=== PATIENT | female | born 1950 | race Caucasian/White ===

== ENCOUNTER 2016-11-18 06:01 | Inpatient (IN) | payer MEDICARE ==
[~2016-11-18] VITALS: Ht 149.9 cm; Wt 74.6 kg
[2016-11-18] MEDS ORDERED: MORPHINE SULFATE 4 MG/ML, 1ML ONE (06:11)
[2016-11-18] MEDS ORDERED: ONDANSETRON 2MG/ML, 2ML ONE (06:11)
[2016-11-18] MEDS ORDERED: LISI40TA PO (06:24)
[2016-11-18] MEDS ORDERED: HYDR25TA6 PO (06:25)
[2016-11-18] MEDS ORDERED: DICL75TA2 PO (06:26)
[2016-11-18] MEDS ORDERED: ASPI-515 PO (06:27)
[2016-11-18] MEDS ORDERED: SODIUM CHLORIDE FLUSH 10ML SYR IVF ONE (06:30)
[2016-11-18] MEDS ORDERED: MORPHINE SULFATE 4 MG/ML, 1ML IVPush PRN ×2 (06:30→09:00)
[2016-11-18] MEDS ORDERED: ONDANSETRON 2MG/ML, 2ML IVPush ONE (06:30)
[2016-11-18 06:52] LABS: ASPARTATE AMINO TRANSFERASE 16 U/L (15-37); BLOOD UREA NITROGEN 29 mg/dL (7-18)
[2016-11-18 06:57] LABS: IS PT STATUS REG ER OR PRE ER? YES
[2016-11-18] MEDS ORDERED: MAALOX/HYOSCYAMINE/LIDOCAINE 45 ML BOTTLE ONE (07:09)
[2016-11-18] MEDS ORDERED: MAALOX/HYOSCYAMINE/LIDOCAINE 45 ML BOTTLE PO ONE (07:30)
[2016-11-18] MEDS ORDERED: ONDANSETRON 2MG/ML, 2ML IVP PRN (08:30)
[2016-11-18] MEDS ORDERED: BISACODYL 10 MG SUPP PR PRN (08:30)
[2016-11-18] MEDS ORDERED: NITROGLYCERIN 0.4 MG/SPRAY SL PRN (08:30)
[2016-11-18] MEDS ORDERED: BISACODYL 5 MG EC TABLET PO PRN (08:30)
[2016-11-18] MEDS ORDERED: ACETAMINOPHEN 325 MG TABLET PO PRN (08:30)
[2016-11-18 09:00] VITALS: BP 112/72
[2016-11-18] MEDS ORDERED: POTASSIUM CHLORIDE 20 MEQ TAB.ER.PRT PO ONE (09:00)
[2016-11-18] MEDS: HYDROCHLOROTHIAZIDE 25 MG TABLET PO SCH (09:00)
[2016-11-18] MEDS: LISINOPRIL 20 MG TABLET PO SCH (09:00)
[2016-11-18] MEDS: ENOXAPARIN 40 MG/0.4 ML SQ SCH (10:39)
[2016-11-18] MEDS: SODIUM CHLORIDE FLUSH 10ML SYR IVF SCH ×2 (10:41→20:32)
[2016-11-18 12:32] LABS: IS PT STATUS REG ER OR PRE ER? NO
[2016-11-18 14:00] VITALS: BP 102/65
[2016-11-18 18:23] LABS: IS PT STATUS REG ER OR PRE ER? NO
[2016-11-18 20:28] VITALS: BP 117/67
[2016-11-18] MEDS ORDERED: DICLOFENAC SODIUM 75 MG TABLET.DR PO SCH (21:00)
[2016-11-19 04:53] VITALS: BP 122/79
[2016-11-19] MEDS ORDERED: ASPIRIN 325 MG TABLET EC PO SCH (06:00)
[2016-11-19 06:05] LABS: BLOOD UREA NITROGEN 26 mg/dL (7-18)
[2016-11-19 06:50] VITALS: BP 143/84
[2016-11-19] MEDS ORDERED: REGADENOSON 0.4 MG/5 ML SYRINGE ONE (08:12)
[2016-11-19] MEDS: LISINOPRIL 20 MG TABLET PO SCH (11:04)
[2016-11-19] MEDS: SODIUM CHLORIDE FLUSH 10ML SYR IVF SCH (11:04)
[2016-11-19] MEDS: ENOXAPARIN 40 MG/0.4 ML SQ SCH (11:04)
[2016-11-19] MEDS: HYDROCHLOROTHIAZIDE 25 MG TABLET PO SCH (11:04)
[2016-11-19 13:20] VITALS: BP 126/79
== END 2016-11-19 15:50 | disposition home or self-care (01) | DRG 392 ==
LOC: ED 07:16 → EDIP 07:17 → ED 07:24 → 5SO 08:41 → DCLOUNGE 11-19 15:17
PROVIDERS: ADMIT Family Medicine; ATTEND Family Medicine
DX: K21.9 Gastro-esophageal reflux disease without esophagitis (principal); I24.9 Acute ischemic heart disease, unspecified; I10 Essential (primary) hypertension; E87.6 Hypokalemia; J45.909 Unspecified asthma, uncomplicated; M46.90 Unspecified inflammatory spondylopathy, site unspecified; Z82.3 Family history of stroke; Z79.899 Other long term (current) drug therapy
CPT/HCPCS: 36415; 71010; 78452; 80048; 80053; 80061; 83735; 83880; 84484; 85025; 85027; 93005; 93017; 93306; 96374; 96375; J1650; J2405; J2785; A9502; C9898

== ENCOUNTER → 2017-02-12 | Outpatient (CLI) | payer MEDICARE ==
[~2017-02-12] MED LIST: ASPI-515 PO; DICL75TA2 PO; HYDR25TA6 PO; LISI40TA PO
== END | disposition home or self-care (01) ==
LOC: CFH 10:27
PROVIDERS: ATTEND Nurse Practitioner Family
DX: Z12.31 Encounter for screening mammogram for malignant neoplasm of breast (principal); M85.88 Other specified disorders of bone density and structure, other site
CPT/HCPCS: 77080; G0202

== ENCOUNTER 2017-03-30 23:11 | Inpatient (IN) | payer MEDICARE ==
[~2017-03-30] VITALS: Ht 144.8 cm; Wt 77.0 kg
[2017-03-30 23:29] VITALS: BP 178/106
[2017-03-31] MEDS ORDERED: ONDANSETRON 2MG/ML, 2ML IVPush PRN ×2 (00:30→14:30)
[2017-03-31] MEDS ORDERED: ACETAMINOPHEN 325 MG TABLET PO PRN ×2 (00:30→14:30)
[2017-03-31] MEDS ORDERED: hydrALAzine 20 MG/ML, 1ML IVPush PRN (00:30)
[2017-03-31] MEDS ORDERED: LACTATED RINGERS 1,000 ML IV SCH (00:30)
[2017-03-31] MEDS: morphine SULFATE 10 MG/ML, 1ML IVPush PRN ×3 (00:43→08:06)
[2017-03-31] MEDS: AMPICILLIN/SULBACTAM 1,500 MG in SODIUM CHLORIDE 0.9% 50 ML IV SCH ×4 (01:30→21:18)
[2017-03-31 04:11] VITALS: BP 136/85
[2017-03-31 05:13] LABS: HEMATOCRIT 41.1 % (34.6-47.8); WHITE BLOOD COUNT 17.6 x10^3/uL (3.4-10)
[2017-03-31 05:24] LABS: BLOOD UREA NITROGEN 15 mg/dL (7-18)
[2017-03-31 05:29] LABS: ASPARTATE AMINO TRANSFERASE 33 U/L (15-37)
[2017-03-31 08:15] VITALS: BP 125/83
[2017-03-31] MEDS ORDERED: LISINOPRIL 20 MG TABLET PO SCH (09:00)
[2017-03-31 13:01] VITALS: BP 105/69
[2017-03-31] MEDS ORDERED: MIDAZOLAM 1 MG/ML, 2ML ONE (14:26)
[2017-03-31] MEDS ORDERED: CEFOTETAN PMX 1GM/50ML 50 ML ONE (14:26)
[2017-03-31] MEDS ORDERED: ONDANSETRON 2MG/ML, 2ML ONE (14:26)
[2017-03-31] MEDS ORDERED: DEXAMETHASONE 4 MG/ML, 1ML ONE (14:26)
[2017-03-31] MEDS ORDERED: ROCURONIUM 10 MG/ML ONE (14:26)
[2017-03-31] MEDS ORDERED: FENTANYL PF 100 MCG/2ML ONE ×2 (14:26→16:42)
[2017-03-31] MEDS ORDERED: PROPOFOL 10 MG/ML, 20ML ONE (14:26)
[2017-03-31] MEDS ORDERED: ALBUTEROL SULFATE 2.5 MG/3 ML NPPB PRN (14:30)
[2017-03-31] MEDS ORDERED: LABETALOL 5MG/ML, 20ML IV PRN (14:30)
[2017-03-31] MEDS ORDERED: METOPROLOL 1 MG/ML, 5ML IV PRN (14:30)
[2017-03-31] MEDS ORDERED: hydrALAzine 20 MG/ML, 1ML IV PRN (14:30)
[2017-03-31] MEDS ORDERED: PROMETHAZINE 25 MG/ML, 1ML IV PRN (14:30)
[2017-03-31] MEDS ORDERED: HYDROmorphone 1 MG/ML, 1ML IV PRN (14:30)
[2017-03-31] MEDS ORDERED: OXYcodone 5 MG/5 ML ORAL.SOL UDC PO PRN (14:30)
[2017-03-31] MEDS ORDERED: EPHEDRINE 50 MG/ML, 1ML IVPush PRN (14:30)
[2017-03-31] MEDS ORDERED: BUPIVACAINE/PF 0.5% ONE (15:23)
[2017-03-31] MEDS ORDERED: EPINEPHRINE 1 MG/ML, 1ML ONE (15:23)
[2017-03-31] MEDS ORDERED: BUPIVACAINE/PF-EPI 0.5% 1:200K IM ONE (15:55)
[2017-03-31] MEDS ORDERED: NEOSTIGMINE 1 MG/ML, 10ML ONE (16:04)
[2017-03-31] MEDS ORDERED: GLYCOPYRROLATE 0.4 MG/2 ML, 2ML ONE (16:05)
[2017-03-31] MEDS ORDERED: LABETALOL 5MG/ML, 20ML ONE (16:06)
[2017-03-31] MEDS: FENTANYL PF 100 MCG/2ML IV PRN ×3 (16:45→17:05)
[2017-03-31] MEDS ORDERED: KETOROLAC 30 MG/1 ML ONE (17:20)
[2017-03-31] MEDS ORDERED: KETOROLAC 30 MG/1 ML IVPush SCH (17:30)
[2017-03-31 18:50] VITALS: BP 104/63
[2017-03-31] MEDS: POTASSIUM CHLORIDE 40 MEQ in LACTATED RINGERS 1,000 ML IV SCH (19:44)
[2017-03-31] MEDS: KETOROLAC 30 MG/1 ML IVPush SCH (19:44)
[2017-03-31] MEDS: DICLOFENAC SODIUM 75 MG TABLET.DR PO SCH (21:00)
[2017-04-01 00:14] VITALS: BP 87/58
[2017-04-01] MEDS: OXYcodone IR 5MG TABLET PO PRN ×5 (00:44→22:10)
[2017-04-01] MEDS ORDERED: morphine SULFATE 10 MG/ML, 1ML IVPush PRN (01:30)
[2017-04-01] MEDS ORDERED: OXYcodone/APAP 5/325MG TABLET PO PRN (01:30)
[2017-04-01] MEDS: [UNRECOGNIZED DRUG - REMARK] MC SCH ×4 (01:30→22:55)
[2017-04-01] MEDS ORDERED: KETOROLAC 30 MG/1 ML IVPush SCH (01:30)
[2017-04-01] MEDS: AMPICILLIN/SULBACTAM 1,500 MG in SODIUM CHLORIDE 0.9% 50 ML IV SCH ×4 (02:35→20:27)
[2017-04-01] MEDS: KETOROLAC 30 MG/1 ML IVPush SCH ×4 (02:36→20:27)
[2017-04-01] MEDS: ASPIRIN 81 MG TABLET EC PO SCH (05:12)
[2017-04-01 05:52] LABS: HEMATOCRIT 34.4 % (34.6-47.8); HEMOGLOBIN 11.5 g/dL (11.7-16.4); WHITE BLOOD COUNT 15.4 x10^3/uL (3.4-10)
[2017-04-01 06:03] LABS: ASPARTATE AMINO TRANSFERASE 36 U/L (15-37); BLOOD UREA NITROGEN 24 mg/dL (7-18)
[2017-04-01 06:30] VITALS: BP 99/62
[2017-04-01] MEDS: POTASSIUM CHLORIDE 40 MEQ in LACTATED RINGERS 1,000 ML IV SCH ×2 (09:21→21:45)
[2017-04-01] MEDS: LISINOPRIL 20 MG TABLET PO SCH (09:35)
[2017-04-01] MEDS: HYDROCHLOROTHIAZIDE 25 MG TABLET PO SCH (09:36)
[2017-04-01 12:35] VITALS: BP_SYST 102; BP_SYST 110; BP_DIAS 64; BP_DIAS 65
[2017-04-01 19:32] VITALS: BP 135/70
[2017-04-01] MEDS: DICLOFENAC SODIUM 75 MG TABLET.DR PO SCH (20:27)
[2017-04-02] MEDS: AMPICILLIN/SULBACTAM 1,500 MG in SODIUM CHLORIDE 0.9% 50 ML IV SCH ×4 (02:11→20:22)
[2017-04-02] MEDS: KETOROLAC 30 MG/1 ML IVPush SCH ×4 (02:11→20:22)
[2017-04-02 03:05] VITALS: BP 113/73
[2017-04-02] MEDS: ASPIRIN 81 MG TABLET EC PO SCH (05:05)
[2017-04-02 05:38] LABS: HEMATOCRIT 32.4 % (34.6-47.8); HEMOGLOBIN 10.9 g/dL (11.7-16.4); WHITE BLOOD COUNT 10.9 x10^3/uL (3.4-10)
[2017-04-02 05:43] LABS: BLOOD UREA NITROGEN 32 mg/dL (7-18)
[2017-04-02 06:55] VITALS: BP 136/82
[2017-04-02] MEDS: [UNRECOGNIZED DRUG - REMARK] MC SCH ×3 (09:19→22:06)
[2017-04-02] MEDS: LISINOPRIL 20 MG TABLET PO SCH (09:27)
[2017-04-02] MEDS: HYDROCHLOROTHIAZIDE 25 MG TABLET PO SCH (09:27)
[2017-04-02] MEDS: POTASSIUM CHLORIDE 40 MEQ in LACTATED RINGERS 1,000 ML IV SCH ×2 (12:42→22:06)
[2017-04-02 12:59] VITALS: BP 136/83
[2017-04-02] MEDS ORDERED: BISACODYL 10 MG SUPP PR PRN (17:00)
[2017-04-02] MEDS: DOCUSATE 100 MG CAPSULE PO SCH ×2 (17:29→20:22)
[2017-04-02 19:33] VITALS: BP 147/85
[2017-04-02] MEDS: DICLOFENAC SODIUM 75 MG TABLET.DR PO SCH (20:21)
[2017-04-03] MEDS: AMPICILLIN/SULBACTAM 1,500 MG in SODIUM CHLORIDE 0.9% 50 ML IV SCH ×3 (01:49→18:02)
[2017-04-03] MEDS: KETOROLAC 30 MG/1 ML IVPush SCH ×3 (01:49→18:02)
[2017-04-03 02:42] VITALS: BP 131/82
[2017-04-03] MEDS ORDERED: IBUP-1222 PO (03:35)
[2017-04-03] MEDS ORDERED: OXYC-306 PO (03:36)
[2017-04-03] MEDS: ASPIRIN 81 MG TABLET EC PO SCH (05:51)
[2017-04-03 07:29] VITALS: BP 142/88
[2017-04-03] MEDS: POTASSIUM CHLORIDE 40 MEQ in LACTATED RINGERS 1,000 ML IV SCH (07:58)
[2017-04-03] MEDS: [UNRECOGNIZED DRUG - REMARK] MC SCH ×2 (07:58→07:59)
[2017-04-03] MEDS: DOCUSATE 100 MG CAPSULE PO SCH (08:13)
[2017-04-03] MEDS: LISINOPRIL 20 MG TABLET PO SCH (08:13)
[2017-04-03] MEDS: HYDROCHLOROTHIAZIDE 25 MG TABLET PO SCH (08:14)
[2017-04-03] MEDS ORDERED: SULF1TAB24 PO (12:25)
[2017-04-03] MEDS: morphine SULFATE 10 MG/ML, 1ML IVPush PRN (13:13)
[2017-04-03 13:23] VITALS: BP 172/93
[2017-04-03] MEDS ORDERED: OMNIPAQUE 350 MG/ML, 100ML BOTTLE ONE (16:46)
[2017-04-03 19:12] VITALS: BP 153/90
== END 2017-04-03 20:30 | disposition home or self-care (01) | DRG 854 ==
LOC: 4NOR 23:11
PROVIDERS: ADMIT Hospitalist; ATTEND Hospitalist
PROC: 0FT44ZZ Resection of Gallbladder, Percutaneous Endoscopic Approach (ICD-10-PCS; principal; 2017-03-31 15:30)
DX: A41.89 Other specified sepsis (principal); E44.0 Moderate protein-calorie malnutrition; K80.00 Calculus of gallbladder with acute cholecystitis without obstruction; E83.39 Other disorders of phosphorus metabolism; I07.1 Rheumatic tricuspid insufficiency; E87.6 Hypokalemia; I10 Essential (primary) hypertension; J45.909 Unspecified asthma, uncomplicated; K82.8 Other specified diseases of gallbladder; Z82.49 Family history of ischemic heart disease and other diseases of the circulatory system; Z82.3 Family history of stroke; M46.90 Unspecified inflammatory spondylopathy, site unspecified; R73.9 Hyperglycemia, unspecified; Z68.36 Body mass index [BMI] 36.0-36.9, adult
CPT/HCPCS: 36415; 74177; 74181; 78226; 80048; 80053; 83735; 84100; 85025; 87040; 87077; 87186; 88304; 93306; 99285; J0171; J1100; J1885; J2250; J2405; J2704; J2710; J3010; J3480; J3490; Q9967; A9537; C9898; J0295; J2270; J7120; S0074

== ENCOUNTER 2018-05-04 12:50 | Emergency (ER) | payer MEDICARE ==
[~2018-05-04] VITALS: Ht 147.3 cm; Wt 77.0 kg
[~2018-05-04 12:50] MED LIST changes: +IBUP-1222 PO; +OXYC-306 PO; +SULF1TAB24 PO
[2018-05-04] MEDS ORDERED: GABAPENTIN PO (13:05)
[2018-05-04 13:52] LABS: ALBUMIN 3.5 g/dL (3.4-5.0); ANION GAP 7 mmol/L (5-15); CHLORIDE 106 mmol/L (98-107); CREATININE 0.74 mg/dL (0.55-1.02)
[2018-05-04 13:53] LABS: BASOPHILS # (AUTO) 0.05 x10^3/uL (0-0.1); BASOPHILS % (AUTO) 1 % (0-1); EOSINOPHILS # (AUTO) 0.14 x10^3/uL (0-0.4); EOSINOPHILS % (AUTO) 2 % (1-7); LYMPHOCYTES # (AUTO) 2.84 x10^3/uL (1-3.4); LYMPHOCYTES % (AUTO) 36 % (22-44); MD NO; MEAN CORPUSCULAR HEMOGLOBIN 32.1 pg (27.0-34.8); MEAN CORPUSCULAR HGB CONC 33.7 g/dL (32.4-35.8); MEAN CORPUSCULAR VOLUME 95.3 fL (80-100); MEAN PLATELET VOLUME 10.3 fL (7.4-10.4); MONOCYTES # (AUTO) 0.61 x10^3/uL (0.2-0.8); MONOCYTES % (AUTO) 8 % (2-9); NEUTROPHILS % (AUTO) 54 % (42-75); PLATELET COUNT 223 x10^3/uL (130-400); RED BLOOD COUNT 4.65 x10^6/uL (3.82-5.3); RED CELL DISTRIBUTION WIDTH 13.5 % (9.6-15.2)
[2018-05-04 13:56] LABS: TROPONIN I < 0.015 ng/mL (0.000-0.045)
[2018-05-04 15:45] LABS: TROPONIN I < 0.015 ng/mL (0.000-0.045)
[2018-05-04 16:43] VITALS: BP 144/88
== END 2018-05-04 16:47 | disposition home or self-care (01) ==
LOC: ED 14:48
DX: R07.89 Other chest pain (principal); I10 Essential (primary) hypertension
CPT/HCPCS: 36415; 71045; 80048; 82040; 84484; 85025; 85379; 93005; 99284

== ENCOUNTER → 2019-12-03 | Outpatient (CLI) | payer MEDICARE ==
[~2019-12-03] MED LIST changes: -DICL75TA2 PO; +DICL75TA3 PO; +GABAPENTIN PO
== END | disposition home or self-care (01) ==
LOC: CFH 07:36
PROVIDERS: ATTEND Internal Medicine Cardiovascular Disease
DX: Z01.810 Encounter for preprocedural cardiovascular examination (principal); I08.3 Combined rheumatic disorders of mitral, aortic and tricuspid valves; I11.9 Hypertensive heart disease without heart failure
CPT/HCPCS: 93306